=== PATIENT | female | born 1950 | race Caucasian/White ===

== ENCOUNTER 2018-05-16 12:52 | Emergency (ER) | payer MEDICARE, MEDICAID, SELFPAY ==
[2018-05-16 12:56] VITALS: BP 116/57; PULSE 69; RESP 22; TEMP 37.5; O2SAT 94
--- NOTE | 2018-05-16 13:18 | DI.RAD.S_ITS ---
PROCEDURE: XR CHEST 2V INDICATIONS: sob, cough TECHNIQUE: 2 views of the chest were acquired. COMPARISON: [facility], CR, CHEST 2 VIEW, 02/24/2016, 11:59. [facility], CR, XR CHEST 1 VIEW, 03/26/2018, 11:48. FINDINGS: Surgical changes and devices: Sternal wires and right hemithorax clips are noted. Lungs and pleura: Chronic interstitial changes are present. Increased pulmonary vascularity as well as trace effusions are present, increased compared to prior exam. Mediastinum: Mediastinal contours are normal. Heart size is mildly prominent. Bones and chest wall: No suspicious bony abnormalities. Soft tissues appear unremarkable. IMPRESSION: Increased pulmonary vascularity and effusions compared to prior exam most consistent with edema. Dictated by: Cindy Nino M.D. on 05/16/2018 at 13:58 Approved by: Cindy Nino M.D. on 05/16/2018 at 13:58
--- NOTE | 2018-05-16 13:20 | ED.URI ---
HPI - URI/Sore Throat <Jailene Aquino PA-C - Last Filed: 05/16/18 20:44> General Chief Complaint: Upper Respiratory Symptoms Stated Complaint: [place],can't breath on O2 Time Seen by Provider: 05/16/18 13:18 Source: patient Mode of arrival: wheelchair Limitations: no limitations History of Present Illness HPI Narrative: This 67-year-old female states that she is here at the insistence of her ?hateful granddaughter? because of respiratory symptoms. She has a history of COPD/emphysema as well as histoplasmosis. States that this she does not always wear this due to getting frustrated with the to being getting tangled up with her wheelchair. She states that for the last 4 days, she has had increasing dyspnea, especially with activity or trying to talk, increased productive cough. She states that she has also had nasal and sinus congestion, and thinks she has had some fever at home because she has felt warm and cold, no temperatures taken. She states that 2 days prior, she was exposed to her ill grandson who had an ear infection and upper respiratory symptoms. She denies other exposures. She states that she does have a history of CAD, but does not have chest pain except for occasionally when she inhales her albuterol. She states this does not feel like previous MS and more like illness. She states not acutely changed today Related Data Home Medications Medication Instructions Recorded Confirmed [Standard Wheelchair] 1 ea MISCELLANEOUS DIRECTED 05/16/18 05/16/18 albuterol sulfate [ProAir HFA] 1 - 2 puff INHALATION Q4H PRN 05/16/18 05/16/18 aspirin 81 mg PO DAILY 05/16/18 05/16/18 citalopram 20 mg PO DAILY 05/16/18 05/16/18 clopidogrel 75 mg PO QPM 05/16/18 05/16/18 fluticasone 2 spray INTRANASAL DAILY 05/16/18 05/16/18 fluticasone-salmeterol [Advair 1 puff INHALATION BID 05/16/18 05/16/18 Diskus] gabapentin 100 mg PO QPM 05/16/18 05/16/18 gabapentin 300 mg PO TID 05/16/18 05/16/18 isosorbide mononitrate 30 mg PO DAILY 05/16/18 05/16/18 loperamide 2 mg PO BID PRN 05/16/18 05/16/18 metoprolol succinate 25 mg PO QPM 05/16/18 05/16/18 nicotine 1 patch TOPICAL DAILY 05/16/18 05/16/18 nitroglycerin [Nitrostat] 0.4 mg SUBLINGUAL Q5MIN PRN 05/16/18 05/16/18 simvastatin 20 mg PO QPM 05/16/18 05/16/18 Previous Rx's Medication Instructions Recorded levothyroxine 50 mcg PO QAM #90 tab 04/17/16 spironolactone 25 mg PO QDAY #90 tab 10/31/16 amoxicillin-pot clavulanate 1 tab PO Q12H #14 tab 05/16/18 [Augmentin] Allergies Allergy/AdvReac Type Severity Reaction Status Date / Time iodine Allergy Unknown Unverified 08/14/17 11:55 Review of Systems <Jailene Aquino PA-C - Last Filed: 05/16/18 20:44> Review of Systems ROS Unobtainable: All systems reviewed & are unremarkable except as noted in HPI and below Exam <Jailene Aquino PA-C - Last Filed: 05/16/18 20:44> Narrative Exam Narrative: GENERAL APPEARANCE: Patient sitting comfortably, in no distress. HEAD: No sinus TTP. EYES: PERRL, EOMI. ORAL CAVITY: Normal oropharynx. THROAT: Clear. NECK/THYROID: Neck supple, full range of motion, no cervical lymphadenopathy. LUNGS: Generalized congested, reduced breath sounds, unable to speak in complete sentences, no cough on exam. Following nebulizer treatments, generalized wheeze, improved AE HEART: RRR without murmur, nl S1, S2, no S3 or S4. ABDOMEN: Soft, nontender, nondistended EXTREMITIES: Right lower extremity absent, left is ruborous, warm, no calf tenderness Initial Vital Signs Initial Vital Signs: Vital Signs Temperature 99.5 F 05/16/18 12:56 Pulse Rate 69 05/16/18 12:56 Respiratory Rate 22 05/16/18 12:56 Blood Pressure 116/57 L 05/16/18 12:56 Pulse Oximetry 94 05/16/18 12:56 <Thalia Bob DO - Last Filed: 05/17/18 08:56> Initial Vital Signs Initial Vital Signs: Vital Signs Temperature 99.5 F 05/16/18 12:56 Pulse Rate 69 05/16/18 12:56 Respiratory Rate 22 05/16/18 12:56 Blood Pressure 116/57 L 05/16/18 12:56 Pulse Oximetry 94 05/16/18 12:56 Course <Jailene Aquino PA-C - Last Filed: 05/16/18 20:44> Additional Information: Patient is feeling significantly improved following nebulizer treatments. She does not appear to need admission, but was advised she needs close monitoring. She agreed to return if feeling acutely worse over the weekend, otherwise will start antibiotics. She was given a spacer and inhaler instruction, and advised her to talk with her PCP about getting a nebulizer machine for home. Advised her to use her oxygen as prescribed at home as well. Orders Ordered: Discontinued Medications Albuterol (Ventolin) 2.5 mg INH NOW ONE Stop: 05/16/18 13:29 Last Admin: 05/16/18 13:36 Dose: 2.5 mg Albuterol (Ventolin) 2.5 mg INH NOW ONE Stop: 05/16/18 14:07 Last Admin: 05/16/18 14:09 Dose: 2.5 mg Albuterol/Ipratropium (Duoneb) 3 ml INH NOW ONE Stop: 05/16/18 13:29 Last Admin: 05/16/18 13:36 Dose: 3 ml Vital Signs - 8 hr 05/16/18 12:56 05/16/18 13:40 05/16/18 13:43 Temperature 99.5 F Pulse Rate 69 65 65 Respiratory Rate 22 29 H 21 Blood Pressure 116/57 L Blood Pressure [Left Wrist] 101/36 L Pulse Oximetry 94 99 99 05/16/18 14:50 05/16/18 15:50 05/16/18 17:00 Temperature Pulse Rate 72 70 67 Respiratory Rate 19 17 18 Blood Pressure Blood Pressure [Left Wrist] 112/65 98/46 L 133/56 L Pulse Oximetry 96 98 100 <Thalia Bob DO - Last Filed: 05/17/18 08:56> Orders Ordered: Discontinued Medications Albuterol (Ventolin) 2.5 mg INH NOW ONE Stop: 05/16/18 13:29 Last Admin: 05/16/18 13:36 Dose: 2.5 mg Albuterol (Ventolin) 2.5 mg INH NOW ONE Stop: 05/16/18 14:07 Last Admin: 05/16/18 14:09 Dose: 2.5 mg Albuterol/Ipratropium (Duoneb) 3 ml INH NOW ONE Stop: 05/16/18 13:29 Last Admin: 05/16/18 13:36 Dose: 3 ml Vital Signs - 8 hr 05/16/18 12:56 05/16/18 13:40 05/16/18 13:43 Temperature 99.5 F Pulse Rate 69 65 65 Respiratory Rate 22 29 H 21 Blood Pressure 116/57 L Blood Pressure [Left Wrist] 101/36 L Pulse Oximetry 94 99 99 05/16/18 14:50 05/16/18 15:50 05/16/18 17:00 Temperature Pulse Rate 72 70 67 Respiratory Rate 19 17 18 Blood Pressure Blood Pressure [Left Wrist] 112/65 98/46 L 133/56 L Pulse Oximetry 96 98 100 MDM - URI/Sore Throat <Jailene Aquino PA-C - Last Filed: 05/16/18 20:44> Lab Data Result diagrams: 05/16/18 14:10 05/16/18 14:10 Lab Results 05/16/18 05/16/18 05/16/18 Range/Units 14:10 14:10 14:10 WBC 12.3 H (4.5-11.0) X10^3/uL RBC 4.63 (4.0-5.2) X10^6/uL Hgb 16.0 (12.0-16.0) g/dL Hct 48.3 H (36-46) % MCV 104.4 H (80-100) fL MCH 34.6 H (26-34) PG MCHC 33.1 (30-36) % RDW 13.8 (11.6-14.8) % Plt Count 124 L (150-400) X10^3/uL Neut % (Auto) 68.9 (50-75) % Lymph % (Auto) 21.8 L (25-40) % [place] % (Auto) 8.7 (3-14) % Eos % (Auto) 0.1 L (2-4) % Baso % (Auto) 0.5 (0-2) % Neut # (Auto) 8500 H (2430-4902) /uL PT 12.4 (10.1-12.7) SECONDS INR 1.1 (0.9-1.3) APTT 28 (26.4-36.2) SECONDS Sodium 139 (137-145) mmol/L Potassium 4.2 (3.4-5.1) mmol/L Chloride 97 L (98-107) mmol/L Carbon Dioxide 31 (22-32) mmol/L BUN 11 (7-17) mg/dL Creatinine 0.80 (0.52-1.04) mg/dL Estimated GFR > 60.0 (>60) mL/min BUN/Creatinine Ratio 13.8 (6-22) Glucose 90 (80-110) mg/dL Lactate (0.7-2.1) mmol/L Calcium 9.1 (8.4-10.2) mg/dL Total Bilirubin 0.9 (0.2-1.3) mg/dL AST 25 (14-36) IU/L ALT 35 (9-52) IU/L Alkaline Phosphatase 99 (38-126) U/L Total Creatine Kinase 47 (30-135) U/L CK-MB (CK-2) TNP CK-MB (CK-2) Rel Index TNP Troponin I 0.032 (0.01-0.034) ng/mL B-Natriuretic Peptide 341 H (<100) Total Protein 7.4 (6.3-8.2) g/dL Albumin 4.1 (3.5-5.0) g/dL Globulin 3.3 (1.7-4.1) g/dL Albumin/Globulin Ratio 1.2 (1.0-2.8) Influenza A & B (PCR) (Negative) 05/16/18 05/16/18 Range/Units 14:10 15:15 WBC (4.5-11.0) X10^3/uL RBC (4.0-5.2) X10^6/uL Hgb (12.0-16.0) g/dL Hct (36-46) % MCV (80-100) fL MCH (26-34) PG MCHC (30-36) % RDW (11.6-14.8) % Plt Count (150-400) X10^3/uL Neut % (Auto) (50-75) % Lymph % (Auto) (25-40) % [place] % (Auto) (3-14) % Eos % (Auto) (2-4) % Baso % (Auto) (0-2) % Neut # (Auto) (5046-0076) /uL PT (10.1-12.7) SECONDS INR (0.9-1.3) APTT (26.4-36.2) SECONDS Sodium (137-145) mmol/L Potassium (3.4-5.1) mmol/L Chloride (98-107) mmol/L Carbon Dioxide (22-32) mmol/L BUN (7-17) mg/dL Creatinine (0.52-1.04) mg/dL Estimated GFR (>60) mL/min BUN/Creatinine Ratio (6-22) Glucose (80-110) mg/dL Lactate 1.2 (0.7-2.1) mmol/L Calcium (8.4-10.2) mg/dL Total Bilirubin (0.2-1.3) mg/dL AST (14-36) IU/L ALT (9-52) IU/L Alkaline Phosphatase (38-126) U/L Total Creatine Kinase (30-135) U/L CK-MB (CK-2) CK-MB (CK-2) Rel Index Troponin I (0.01-0.034) ng/mL B-Natriuretic Peptide (<100) Total Protein (6.3-8.2) g/dL Albumin (3.5-5.0) g/dL Globulin (1.7-4.1) g/dL Albumin/Globulin Ratio (1.0-2.8) Influenza A & B (PCR) Negative (Negative) <Thalia Bob, DO - Last Filed: 05/17/18 08:56> Lab Data Lab Results 05/16/18 05/16/18 05/16/18 Range/Units 14:10 14:10 14:10 WBC 12.3 H (4.5-11.0) X10^3/uL RBC 4.63 (4.0-5.2) X10^6/uL Hgb 16.0 (12.0-16.0) g/dL Hct 48.3 H (36-46) % MCV 104.4 H (80-100) fL MCH 34.6 H (26-34) PG MCHC 33.1 (30-36) % RDW 13.8 (11.6-14.8) % Plt Count 124 L (150-400) X10^3/uL Neut % (Auto) 68.9 (50-75) % Lymph % (Auto) 21.8 L (25-40) % [place] % (Auto) 8.7 (3-14) % Eos % (Auto) 0.1 L (2-4) % Baso % (Auto) 0.5 (0-2) % Neut # (Auto) 8500 H (9844-9560) /uL PT 12.4 (10.1-12.7) SECONDS INR 1.1 (0.9-1.3) APTT 28 (26.4-36.2) SECONDS Sodium 139 (137-145) mmol/L Potassium 4.2 (3.4-5.1) mmol/L Chloride 97 L (98-107) mmol/L Carbon Dioxide 31 (22-32) mmol/L BUN 11 (7-17) mg/dL Creatinine 0.80 (0.52-1.04) mg/dL Estimated GFR > 60.0 (>60) mL/min BUN/Creatinine Ratio 13.8 (6-22) Glucose 90 (80-110) mg/dL Lactate (0.7-2.1) mmol/L Calcium 9.1 (8.4-10.2) mg/dL Total Bilirubin 0.9 (0.2-1.3) mg/dL AST 25 (14-36) IU/L ALT 35 (9-52) IU/L Alkaline Phosphatase 99 (38-126) U/L Total Creatine Kinase 47 (30-135) U/L CK-MB (CK-2) TNP CK-MB (CK-2) Rel Index TNP Troponin I 0.032 (0.01-0.034) ng/mL B-Natriuretic Peptide 341 H (<100) Total Protein 7.4 (6.3-8.2) g/dL Albumin 4.1 (3.5-5.0) g/dL Globulin 3.3 (1.7-4.1) g/dL Albumin/Globulin Ratio 1.2 (1.0-2.8) Influenza A & B (PCR) (Negative) 05/16/18 05/16/18 Range/Units 14:10 15:15 WBC (4.5-11.0) X10^3/uL RBC (4.0-5.2) X10^6/uL Hgb (12.0-16.0) g/dL Hct (36-46) % MCV (80-100) fL MCH (26-34) PG MCHC (30-36) % RDW (11.6-14.8) % Plt Count (150-400) X10^3/uL Neut % (Auto) (50-75) % Lymph % (Auto) (25-40) % [place] % (Auto) (3-14) % Eos % (Auto) (2-4) % Baso % (Auto) (0-2) % Neut # (Auto) (4956-4908) /uL PT (10.1-12.7) SECONDS INR (0.9-1.3) APTT (26.4-36.2) SECONDS Sodium (137-145) mmol/L Potassium (3.4-5.1) mmol/L Chloride (98-107) mmol/L Carbon Dioxide (22-32) mmol/L BUN (7-17) mg/dL Creatinine (0.52-1.04) mg/dL Estimated GFR (>60) mL/min BUN/Creatinine Ratio (6-22) Glucose (80-110) mg/dL Lactate 1.2 (0.7-2.1) mmol/L Calcium (8.4-10.2) mg/dL Total Bilirubin (0.2-1.3) mg/dL AST (14-36) IU/L ALT (9-52) IU/L Alkaline Phosphatase (38-126) U/L Total Creatine Kinase (30-135) U/L CK-MB (CK-2) CK-MB (CK-2) Rel Index Troponin I (0.01-0.034) ng/mL B-Natriuretic Peptide (<100) Total Protein (6.3-8.2) g/dL Albumin (3.5-5.0) g/dL Globulin (1.7-4.1) g/dL Albumin/Globulin Ratio (1.0-2.8) Influenza A & B (PCR) Negative (Negative) Discharge Plan Departure Patient Disposition: Home Clinical Impression: Acute exacerbation of chronic obstructive pulmonary disease (COPD), COPD (chronic obstructive pulmonary disease) with emphysema Discharge Date/Time: 05/16/18 17:11 Interventions: ED Discharge Assessment Last Done: 05/16/18 17:11 Instructions: DI for Chronic Obstructive Pulmonary Disease Activity Restrictions/Additional Instructions: You should return as we talked about if you have acutely worsening symptoms. 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 You may wish to add some Mucinex to help with your chest congestion. Since you have not needed steroids in the past, I have not prescribed these, but you should be sure to use your oxygen at all times. Please follow up with your PCP early next week and also discuss getting a nebulizer to use at home since it seemed to help your symptoms here significantly. We have scheduled you for an appointment at your PCP office check in time 10:45 a.m. on Saturday Prescriptions: New amoxicillin-pot clavulanate [Augmentin] 875-125 mg tablet 1 tab PO Q12H Qty: 14 RF: 0 No Action levothyroxine 50 MCG tablet 50 mcg PO QAM Qty: 90 RF: 1 spironolactone 25 MG tablet 25 mg PO QDAY Qty: 90 RF: 0 nicotine 14 mg/24 hr patch 24 hour 1 patch Topical DAILY RF: 0 isosorbide mononitrate 30 mg tablet extended release 24 hr 30 mg PO DAILY RF: 0 clopidogrel 75 mg tablet 75 mg PO QPM RF: 0 simvastatin 20 mg tablet 20 mg PO QPM RF: 0 gabapentin 300 mg capsule 300 mg PO TID RF: 0 gabapentin 100 mg capsule 100 mg PO QPM RF: 0 metoprolol succinate 25 mg tablet extended release 24 hr 25 mg PO QPM RF: 0 fluticasone-salmeterol [Advair Diskus] 100-50 mcg/dose blister with device 1 puff Inhalation BID RF: 0 albuterol sulfate [ProAir HFA] 90 mcg/actuation HFA aerosol inhaler 1 - 2 puff Inhalation Q4H PRN (Reason: Shortness Of Breath) RF: 0 fluticasone 16 GM spray,suspension 2 spray Intranasal DAILY RF: 0 loperamide 2 mg Capsule 2 mg PO BID PRN (Reason: Diarrhea) RF: 0 aspirin 81 mg Tablet,Delayed Release (Dr/Ec) 81 mg PO DAILY RF: 0 nitroglycerin [Nitrostat] 0.4 mg Tablet, Sublingual 0.4 mg SUBLINGUAL Q5MIN PRN (Reason: Chest Pain) RF: 0 citalopram 20 MG tablet 20 mg PO DAILY RF: 0 [Standard Wheelchair] 1 ea miscellaneous DIRECTED RF: 0 Referrals: Lina Winn ARNP [Primary Care Provider] - <Thalia Bob DO - Last Filed: 05/17/18 08:56> Cosign ED Attending Lauroature Attestation: I was immediately available in the department for consultation. Documentation has been reviewed. I agree with assessment and plan.
[2018-05-16] MEDS: ALBUTEROL 2.5 MG/3 ML NEB (ADULT) INH ×2 (13:36→14:09)
[2018-05-16] MEDS: ALBUTEROL/IPRATROPIUM 3 ML AMPUL INH (13:36)
[2018-05-16 13:40] VITALS: PULSE 65; RESP 29; O2SAT 99
[2018-05-16 13:43] VITALS: BP 101/36; PULSE 65; RESP 21; O2SAT 99
[2018-05-16 14:22] LABS: Add Manual Diff / Slide Review NO; Basophils Percent Auto 0.5 % (0-2); Eosinophils Percent Auto 0.1 % (2-4); Hematocrit 48.3 % (36-46); Lymphocytes Percent Auto 21.8 % (25-40); Mean Corpuscular HGB Conc 33.1 % (30-36); Mean Corpuscular Hemoglobin 34.6 PG (26-34); Mean Corpuscular Volume 104.4 fL (80-100); Monocytes Percent Auto 8.7 % (3-14); Neutrophils Absolute Auto 8500 /uL (1500-7000); Neutrophils Percent Auto 68.9 % (50-75); Platelet Count 124 X10^3/uL (150-400); Red Blood Cell Count 4.63 X10^6/uL (4.0-5.2); Red Cell Distribution Width 13.8 % (11.6-14.8); White Blood Cell Count 12.3 X10^3/uL (4.5-11.0)
[2018-05-16 14:26] LABS: INR 1.1 (0.9-1.3); Prothrombin Time 12.4 SECONDS (10.1-12.7)
[2018-05-16 14:29] LABS: PTT Partial Thromboplastin Tim 28 SECONDS (26.4-36.2)
[2018-05-16 14:32] LABS: Lactate (Lactic Acid) 1.2 mmol/L (0.7-2.1)
[2018-05-16 14:33] LABS: Alanine Aminotransferase 35 IU/L (9-52); Albumin 4.1 g/dL (3.5-5.0); Albumin Globulin Ratio 1.2 (1.0-2.8); Alkaline Phosphatase 99 U/L (38-126); Aspartate Aminotransferase 25 IU/L (14-36); BUN Creatinine Ratio 13.8 (6-22); Bilirubin Total 0.9 mg/dL (0.2-1.3); Blood Urea Nitrogen 11 mg/dL (7-17); Calcium 9.1 mg/dL (8.4-10.2); Carbon Dioxide 31 mmol/L (22-32); Chloride 97 mmol/L (98-107); Creatine Kinase 47 U/L (30-135); Estimated Glomerular Filt Rate > 60.0 mL/min (>60); Globulin 3.3 g/dL (1.7-4.1); Glucose 90 mg/dL (80-110); HEMOLYSIS 22 (0-50); Potassium 4.2 mmol/L (3.4-5.1); Sodium 139 mmol/L (137-145); Total Protein 7.4 g/dL (6.3-8.2)
[2018-05-16 14:43] LABS: Troponin I 0.032 ng/mL (0.01-0.034)
[2018-05-16 14:50] VITALS: BP 112/65; PULSE 72; RESP 19; O2SAT 96
[2018-05-16 14:50] LABS: B Type Natriuretic Peptide 341 (<100)
[2018-05-16 15:40] LABS: Influenza A and B by PCR Rapid Negative (Negative)
[2018-05-16 15:50] VITALS: BP 98/46; PULSE 70; RESP 17; O2SAT 98
[2018-05-16 17:00] VITALS: BP 133/56; PULSE 67; RESP 18; O2SAT 100
== END 2018-05-16 17:11 | disposition home or self-care (01) ==
PROVIDERS: Emergency Provider Internal Medicine; PCP Nurse Practitioner
DX: J44.1 Chronic obstructive pulmonary disease with (acute) exacerbation (principal)
CPT/HCPCS: 36415; 36591; 71046; 80053; 82550; 83605; 83880; 84484; 85025; 85610; 85730; 87040; 87400; 93005; 93010; 94640; 99283; 99285; J7613